=== PATIENT | female | born 1950 | race Caucasian/White ===

== ENCOUNTER 2017-09-13 09:19 | Outpatient (CLI) | payer MEDICARE | END 2017-09-13 09:20 | disposition home or self-care (01) | LOC: BICMAMMO 09:19 | PROVIDERS: ATTEND Family Medicine | DX: Z12.31 Encounter for screening mammogram for malignant neoplasm of breast (principal); M85.80 Other specified disorders of bone density and structure, unspecified site; R92.1 Mammographic calcification found on diagnostic imaging of breast | CPT/HCPCS: 77063; 77067; 77080 ==

== ENCOUNTER 2018-01-17 14:26 | Outpatient (CLI) | payer MEDICARE | END 2018-01-17 14:27 | disposition home or self-care (01) | LOC: BICRAD 14:26 | PROVIDERS: ATTEND Internal Medicine Rheumatology | DX: M70.61 Trochanteric bursitis, right hip (principal); M16.0 Bilateral primary osteoarthritis of hip | CPT/HCPCS: 72170 ==

== ENCOUNTER 2018-02-19 13:23 | Outpatient (CLI) | payer MEDICARE ==
--- NOTE | 2018-02-19 15:42 | RAD ---
FIVE VIEWS OF THE LUMBAR SPINE: Date: 02-19-18 Comparison: None. History: Chronic back pain radiating down the right leg. FINDINGS: Five views of the lumbar spine demonstrates five lumbar type vertebral bodies with intact pedicles on frontal imaging. At the L4-5 level there is anterolisthesis measuring 8 mm on neutral imaging, 7 mm on flexion, and 8 mm on extension. There is disc space narrowing at L3-4 and L5-S1 with degenerative endplate change an d anterior osteophyte formation. There is no acute fracture or evidence of dislocation. Multilevel lower lumbar spine facet hypertrophic changes are present. IMPRESSION: Multilevel degenerative change within the lumbar spine, most prominent at L3-4 and L5-S1. There is al so anterolisthesis of L4 on L5 measuring up to 8 mm. POS: [facility]
--- NOTE | 2018-02-19 16:25 | MRI ---
LUMBAR SPINE MRI WITHOUT CONTRAST: 02/19/2018 HISTORY: Chronic back pain radiating down the right leg. COMPARISON: None. TECHNIQUE: Multiplanar, multisequence MR imaging of the lumbar spine provided without contrast. FINDINGS: The sagittal STIR imaging demonstrates no focal area of osseous marrow edema. Assuming five lumbar t ype vertebral bodies, the conus medullaris terminates at the T12-L1 level. No significant anterolist hesis or retrolisthesis is noted. T12-L1: Intervertebral disk height and signal intensity are within normal limits. No significant ce ntral canal or neural foraminal stenosis. L1-L2: There is mild bilateral facet hypertrophy and hypertrophy of the ligamentum flavum. There is disk space narrowing and disk desiccation with mild disk bulge, causing no significant central canal or neural foraminal stenosis. L2-L3: There is disk space narrowing with degenerative endplate change and anterior osteophyte forma tion. There is bilateral facet hypertrophy and hypertrophy of the ligamentum flavum, with mild disk bulge. No significant central canal or neural foraminal stenosis. L3-L4: There is bilateral facet hypertrophy and hypertrophy of the ligamentum flavum, left greater t roe right. There is disk space narrowing, disk desiccation, and mild disk bulge. There is a small f oraminal and post foraminal disk protrusion on the left. There is mild left neural foraminal stenosi s/lateral recess stenosis. No significant right neural foraminal stenosis. L4-L5: There is moderate bilateral facet hypertrophy, right greater than left. There is disk space narrowing, disk desiccation, and disk bulge. There is no significant central canal stenosis. There is mild bilateral neural foraminal stenosis. L5-S1: Disk space narrowing, disk desiccation, and mild disk bulge. Bilateral facet hypertrophy. N o significant central canal or neural foraminal stenosis. The imaged retroperitoneal structures demonstrate no acute findings. IMPRESSION: Multilevel degenerative change with no significant central canal or neural foraminal stenosis noted. POS: [facility]
== END 2018-02-19 13:24 | disposition home or self-care (01) ==
LOC: SCSMRI 13:23
PROVIDERS: ATTEND Anesthesiology Pain Medicine
DX: M48.062 Spinal stenosis, lumbar region with neurogenic claudication (principal); M47.896 Other spondylosis, lumbar region; M47.897 Other spondylosis, lumbosacral region; M43.16 Spondylolisthesis, lumbar region
CPT/HCPCS: 72110; 72148

== ENCOUNTER 2018-04-23 14:16 | Outpatient (CLI) | payer MEDICARE | END 2018-04-23 14:17 | disposition home or self-care (01) | LOC: BICRAD 14:16 | PROVIDERS: ATTEND Internal Medicine Rheumatology | DX: M54.2 Cervicalgia (principal); M47.892 Other spondylosis, cervical region; M99.81 Other biomechanical lesions of cervical region | CPT/HCPCS: 72052 ==

== ENCOUNTER 2018-06-20 12:34 | Outpatient (CLI) | payer MEDICARE ==
--- NOTE | 2018-06-20 16:21 | MRI ---
MRI CERVICAL SPINE WITH AND WITHOUT CONTRAST: Technique: Multiplanar, multisequence MRI images were obtained of the cervical spine with and without contrast. Indication: Cervical radiculopathy. FINDINGS: Cervical vertebrae maintain normal height and alignment. Degenerative changes are noted throughout th e cervical spine with mild anterior osteophytes. There is loss of the disc space at C4-5, C5-6, and C 6-7 levels. C3-4: Posterior disc bulge with spondylosis efface the anterior subarachnoid space. No cord impingeme nt. No evidence of significant foraminal stenosis. C4-5: Posterior disc bulge with spondylosis abuts the anterior cord. Mild bilateral foraminal narrowi ng due to disc bulge and uncinate hypertrophy. C5-6: Mild disc bulge and spondylosis abuts the anterior cord. Right foraminal narrowing secondary to uncinate hypertrophy. C6-7: Minimal disc bulge and posterior spondylosis abutting the anterior cord. Mild right foraminal e ncroachment. C7-T1: Mild spondylosis effaces the anterior subarachnoid space. Mild bilateral foraminal encroachmen t due to uncinate hypertrophy. Cord signal appears normal. IMPRESSION: Degenerative disc changes throughout the cervical spine. Posterior disc bulge and spondylosis seen th rough C3 through C7 as described above. POS: [facility]
--- NOTE | 2018-06-20 16:43 | MRI ---
THORACIC SPINE MRI NONCONTRAST: 06/20/18 INDICATION: Back pain. No prior comparison. FINDINGS: Generalized marrow heterogeneity is present, nonspecific. This could relate to a degenerative process . There are multilevel mild disc bulges/disc osteophyte complexes with mild effacement of ventral the arthur sac although no high grade central canal stenosis or significant cord deformity. No severe forami nal stenosis is seen throughout the thoracic spine. There is a mild degree of chronic appearing heigh t loss of the superior end plate of T12. No localizable paraspinal soft tissue edema is evident. Incidental note of pulmonary nodules within the left lung which will require further imaging assessme nt as neoplastic process is the diagnosis of exclusion. IMPRESSION: Extensive multilevel disc osteophyte/disc bulge formation with mild effacement of ventral thecal sac, although no cord deformity of significance. Diffuse marrow heterogeneity as discussed above. Incidental note of pulmonary nodules seen within the left lung. Dedicated CT thorax is warranted to e xclude possibility of underlying neoplasm as findings are incompletely evaluated on the basis of this exam. Code T POS: [facility]
== END 2018-06-20 12:35 | disposition home or self-care (01) ==
LOC: SCSMRI 12:34
PROVIDERS: ATTEND Neurological Surgery
DX: M54.6 Pain in thoracic spine (principal); M51.84 Other intervertebral disc disorders, thoracic region; M25.78 Osteophyte, vertebrae; M47.22 Other spondylosis with radiculopathy, cervical region; M50.11 Cervical disc disorder with radiculopathy, high cervical region
CPT/HCPCS: 72146; 72156; 82565

== ENCOUNTER 2018-08-10 12:27 | Outpatient (CLI) | payer MEDICARE ==
--- NOTE | 2018-08-10 14:02 | MRI ---
MRI LEFT KNEE WITHOUT CONTRAST: HISTORY: Pain. Fall. COMPARISON: None. FINDINGS: MEDIAL MENISCUS: There is maceration throughout the medial meniscus with complete loss of hoop stres s and gutter extrusion. LATERAL MENISCUS: Intact. ACL and PCL are intact. MCL and LCLC are intact. EXTESOR MECHANISM: The quadriceps tendon, patella, and patella tendon are intact. CARTILAGE PATELLOFEMORAL COMPARTMENT: There is high-grade chondral fissuring, greater than 75% thickness, of t he patellar apex and medial trochlea. MEDIAL COMPARTMENT: There is complete cartilage loss of the central weightbearing surfaces of the me dial femoral condyle and medial tibial plateau with subcortical reactive marrow changes and osteophyt e formation. LATERAL COMPARTMENT: Grade 2 chondromalacia. BONES: Moderate osteophytes of the medial compartment. MUSCLES: Muscle signal and bulk is normal. SOFT TISSUES: There is a small, nonleaking popliteal cyst. Low grade pes anserine bursa effusion. IMPRESSION: 1. Maceration of the body and portions of the posterior horn of the medial meniscus with gutter extr usion and complete loss of hoop stress with subsequent grade 4 medial compartment chondromalacia. 2. Multifocal grade 2 and 3 chondromalacia of the patellofemoral compartment. POS: [facility]
== END 2018-08-10 12:28 | disposition home or self-care (01) ==
LOC: SCSMRI 12:27
PROVIDERS: ATTEND Internal Medicine Rheumatology
DX: M17.12 Unilateral primary osteoarthritis, left knee (principal); M22.42 Chondromalacia patellae, left knee

== ENCOUNTER 2018-09-27 09:39 | Outpatient (CLI) | payer MEDICARE ==
--- NOTE | 2018-09-27 11:24 | CT ---
CT THORAX NONCONTRAST: DATE: 09/27/18 HISTORY: 67-year-old female with pulmonary nodule incidentally found on thoracic spine MRI. COMPARISON: No prior chest CTs. FINDINGS: In the anterior segment of the left upper lobe, there is a smoothly, well circumscribed, noncalcified pulmonary nodule measuring approximately 0.9 x 1.2 x 1.1 cm. The density is -3 to -10 HU (with the c aveat that there may be mild partial volume averaging with adjacent lung tissue, the nodule is large enough that this measurement is probably accurate). This relatively low density suggests that perhaps this nodule has fatty elements. This corresponds to the nodule that was found on the thoracic spine MRI. The rest of the lungs are essentially clear. No pleural effusion, pneumothorax, consolidation, or pul monary edema. Tortuosity of mildly ectatic thoracic aorta without dissection or aneurysm. No mediasti nal or hilar lymphadenopathy. Trachea and bilateral mainstem bronchi are patent and clear. No destruc tive osseous lesion. No adrenal mass. No pathology of pancreas, liver, or spleen identified. IMPRESSION: 12 mm left upper lobe pulmonary nodule. 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 As a prec autionary measure, a PET scan is recommended to exclude the less likely possibility of malignant neop lasm. OLINDA Vaughan POS: [facility]
== END 2018-09-27 09:40 | disposition home or self-care (01) ==
LOC: BICCT 09:39
PROVIDERS: ATTEND Internal Medicine Critical Care Medicine
DX: R91.1 Solitary pulmonary nodule (principal)
CPT/HCPCS: 71260; 82565

== ENCOUNTER 2018-09-27 14:35 | Outpatient (CLI) | payer MEDICARE | END 2018-09-27 14:36 | disposition home or self-care (01) | LOC: BICMAMMO 14:35 | PROVIDERS: ATTEND Family Medicine | DX: Z12.31 Encounter for screening mammogram for malignant neoplasm of breast (principal); Z80.3 Family history of malignant neoplasm of breast | CPT/HCPCS: 77063; 77067 ==

== ENCOUNTER 2018-10-04 11:29 | Outpatient (CLI) | payer MEDICARE ==
--- NOTE | 2018-10-04 14:13 | PET ---
PET WITH CT SKULL TO MID THIGH: INDICATION: Solitary pulmonary nodule. RADIOPHARMACEUTICAL: 10.8 mCi [id number] intermixed with 10 mL 0.9% sodium chloride, IV. There is appropriate biodistribution of the radiotracer activity. FINDINGS: The previously described left upper lobe pulmonary nodule is redemonstrated. There is no hypermetabol ic activity. The nodule demonstrates a low CT density, indicating a pulmonary hamartoma given its wel l circumscribed morphology and low attenuation, with absence of hypermetabolic activity. No hypermetabolic mass or adenopathy identified within the neck, chest, abdomen, or pelvis. There is evidence of colonic diverticulosis. Scattered vascular disease present. Incidentally note of a torus palatinus. Retention cyst formation seen at the lateral aspect of the right maxillary sinus. IMPRESSION: There is no hypermetabolic activity localizing to circumscribed low density nodule of the left upper lobe, which is most consistent with a pulmonary hamartoma. POS: [facility]
== END 2018-10-04 11:30 | disposition home or self-care (01) ==
LOC: PET 11:29
PROVIDERS: ATTEND Internal Medicine Critical Care Medicine
DX: R91.1 Solitary pulmonary nodule (principal)
CPT/HCPCS: 78815; A9552

== ENCOUNTER 2019-04-09 09:37 | Outpatient (CLI) | payer MEDICARE ==
--- NOTE | 2019-04-09 13:07 | CT ---
CT CHEST WITHOUT CONTRAST: HISTORY: Lung nodule followup. COMPARISON: 09/27/2018. FINDINGS: The fat-containing 11 mm parenchymal lung nodule in the left upper lobe is stable and consistent with a hamartoma. No new lung nodules are seen. A tiny calcified granuloma in the right mid lung is see n. There are vascular calcifications without evidence of aneurysmal dilatation of the thoracic aorta. T here are degenerative changes in the spine. 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 POS: [facility]
== END 2019-04-09 09:38 | disposition home or self-care (01) ==
LOC: BICCT 09:37
PROVIDERS: ATTEND Internal Medicine Critical Care Medicine
DX: R91.1 Solitary pulmonary nodule (principal); Q85.9 Phakomatosis, unspecified
CPT/HCPCS: 71250

== ENCOUNTER 2019-08-16 12:10 | Outpatient (CLI) | payer MEDICARE ==
--- NOTE | 2019-08-16 13:06 | MMO ---
Bilateral MAMMO Bilat Diag [facility]. CLINICAL HISTORY: Patient is 68 years old and is seen for diagnostic exam. The patient has the following family history of breast cancer: maternal grandmother. The patient has no personal history of cancer. VIEWS: The views performed were: bilateral craniocaudal with tomosynthesis; bilateral mediolateral oblique with tomosynthesis; and bilateral mediolateral with tomosynthesis. FILMS COMPARED: The present examination has been compared to prior imaging studies performed at [facility] on 09/13/2017 and 09/27/2018, and at [facility] on 07/26/2013 and 09/05/2014. This study has been interpreted with the assistance of computer-aided detection. MAMMOGRAM FINDINGS: There are scattered fibroglandular densities. There are stable benign appearing calcifications seen in both breasts. There are no suspicious masses, suspicious calcifications, or new areas of architectural distortion. IMPRESSION: THERE IS NO MAMMOGRAPHIC EVIDENCE OF MALIGNANCY. A ROUTINE FOLLOW-UP MAMMOGRAM IN 1 YEAR IS RECOMMENDED. THE RESULTS OF THIS EXAM WERE SENT TO THE PATIENT. ACR BI-RADS Category 2 - Benign finding MAMMOGRAPHY NOTE: 1. A negative mammogram report should not delay a biopsy if a dominant of clinically suspicious mass is present. 2. Approximately 10% to 15% of breast cancers are not detected by mammography. 3. Adenosis and dense breasts may obscure an underlying neoplasm. Reported by: MINDA HUITRON MD Electonically Signed: [id number]
== END 2019-08-16 12:11 | disposition home or self-care (01) ==
LOC: BICMAMMO 12:10
PROVIDERS: ATTEND Family Medicine
DX: N61.0 Mastitis without abscess (principal); N64.59 Other signs and symptoms in breast
CPT/HCPCS: 77066; G0279

== ENCOUNTER 2020-04-07 11:51 | Outpatient (CLI) | payer MEDICARE ==
--- NOTE | 2020-04-07 14:03 | CT ---
CT THORAX WITHOUT IV CONTRAST: 04/07/20 INDICATIONS: Follow-up pulmonary nodule. COMPARISON: Prior exam dated 04/09/19 and 09/27/18. FINDINGS: The 10-11 mm pulmonary nodule left upper lobe is stable. No new pulmonary nodule is evident. There is a calcified granuloma again seen within the right middle lobe. There are coronary artery and thoraci c aortic calcifications. The visualized upper abdomen reveals no definite acute abnormality. There i s scattered degenerative and osteoarthritic change. IMPRESSION: Stable left upper lobe pulmonary nodule. POS: [facility]
== END 2020-04-07 11:52 | disposition home or self-care (01) ==
LOC: BICCT 11:51
PROVIDERS: ATTEND Internal Medicine Critical Care Medicine
DX: R91.1 Solitary pulmonary nodule (principal)
CPT/HCPCS: 71250

== ENCOUNTER 2020-08-18 15:00 | Outpatient (CLI) | payer MEDICARE ==
--- NOTE | 2020-08-18 15:37 | MMO ---
Bilateral MAMMO Bilat Screen [facility]. CLINICAL HISTORY: Patient is 69 years old and is seen for screening. The patient has the following family history of breast cancer: maternal grandmother. The patient has no personal history of cancer. VIEWS: The views performed were: bilateral craniocaudal with tomosynthesis and bilateral mediolateral oblique with tomosynthesis. FILMS COMPARED: The present examination has been compared to prior imaging studies performed at [facility] on 09/13/2017, 09/27/2018 and 08/16/2019, and at [facility] on 09/05/2014. This study has been interpreted with the assistance of computer-aided detection. MAMMOGRAM FINDINGS: There are scattered fibroglandular densities. There are stable benign appearing calcifications seen in both breasts. There are no suspicious masses, suspicious calcifications, or new areas of architectural distortion. IMPRESSION: THERE IS NO MAMMOGRAPHIC EVIDENCE OF MALIGNANCY. A ROUTINE FOLLOW-UP MAMMOGRAM IN 1 YEAR IS RECOMMENDED. THE RESULTS OF THIS EXAM WERE SENT TO THE PATIENT. ACR BI-RADS Category 2 - Benign finding MAMMOGRAPHY NOTE: 1. A negative mammogram report should not delay a biopsy if a dominant of clinically suspicious mass is present. 2. Approximately 10% to 15% of breast cancers are not detected by mammography. 3. Adenosis and dense breasts may obscure an underlying neoplasm. Reported by: MINDA HUITRON MD Electonically Signed: [id number]
== END 2020-08-18 15:01 | disposition home or self-care (01) ==
LOC: BICMAMMO 15:00
PROVIDERS: ATTEND Family Medicine
DX: Z12.31 Encounter for screening mammogram for malignant neoplasm of breast (principal); Z80.3 Family history of malignant neoplasm of breast
CPT/HCPCS: 77063; 77067

== ENCOUNTER 2021-04-13 09:21 | Outpatient (CLI) | payer MEDICARE | END 2021-04-13 09:22 | disposition home or self-care (01) | LOC: BICCT 09:21 | PROVIDERS: ATTEND Internal Medicine Critical Care Medicine | DX: R91.1 Solitary pulmonary nodule (principal) | CPT/HCPCS: 71250 ==

== ENCOUNTER 2021-08-25 14:14 | Outpatient (CLI) | payer MEDICARE | END 2021-08-25 14:15 | disposition home or self-care (01) | LOC: BICMAMMO 14:14 | PROVIDERS: ATTEND Family Medicine | DX: Z12.31 Encounter for screening mammogram for malignant neoplasm of breast (principal); Z13.820 Encounter for screening for osteoporosis; Z80.3 Family history of malignant neoplasm of breast; M85.89 Other specified disorders of bone density and structure, multiple sites | CPT/HCPCS: 77063; 77067; 77080 ==

== ENCOUNTER 2022-04-14 10:03 | Outpatient (CLI) | payer MEDICARE | END 2022-04-14 10:04 | disposition home or self-care (01) | LOC: BICCT 10:03 | PROVIDERS: ATTEND Internal Medicine Critical Care Medicine | DX: Q85.9 Phakomatosis, unspecified (principal) | CPT/HCPCS: 71250 ==

== ENCOUNTER 2022-11-28 13:24 | Outpatient (CLI) | payer MEDICARE | END 2022-11-28 13:25 | disposition home or self-care (01) | LOC: BICMAMMO 13:24 | PROVIDERS: ATTEND Family Medicine | DX: Z12.31 Encounter for screening mammogram for malignant neoplasm of breast (principal); Z80.3 Family history of malignant neoplasm of breast | CPT/HCPCS: 77063; 77067 ==

== ENCOUNTER 2023-02-16 17:30 | Outpatient (CLI) | payer MEDICARE | END 2023-02-16 17:31 | disposition home or self-care (01) | LOC: SLEEPLAB 17:30 | PROVIDERS: ATTEND Family Medicine | DX: G47.33 Obstructive sleep apnea (adult) (pediatric) (principal); R06.83 Snoring; I10 Essential (primary) hypertension; R53.83 Other fatigue | CPT/HCPCS: 95800 ==

== ENCOUNTER 2023-04-19 17:00 | Outpatient (CLI) | payer MEDICARE | END 2023-04-19 17:01 | disposition home or self-care (01) | LOC: SLEEPLAB 17:00 | PROVIDERS: ATTEND Family Medicine | DX: G47.33 Obstructive sleep apnea (adult) (pediatric) (principal); R06.83 Snoring; R53.83 Other fatigue | CPT/HCPCS: 95811 ==

== ENCOUNTER 2024-02-20 14:24 | Outpatient (CLI) | payer MEDICARE | END 2024-02-20 14:25 | disposition home or self-care (01) | LOC: BICMAMMO 14:24 | PROVIDERS: ATTEND Family Medicine | DX: Z12.31 Encounter for screening mammogram for malignant neoplasm of breast (principal); Z13.820 Encounter for screening for osteoporosis; M85.851 Other specified disorders of bone density and structure, right thigh; M85.852 Other specified disorders of bone density and structure, left thigh; Z80.3 Family history of malignant neoplasm of breast | CPT/HCPCS: 77063; 77067; 77080 ==

== ENCOUNTER 2025-03-19 15:03 | Outpatient (CLI) | payer MEDICARE | END 2025-03-19 15:04 | disposition home or self-care (01) | LOC: BICMAMMO 15:03 | PROVIDERS: ATTEND Obstetrics & Gynecology | DX: Z12.31 Encounter for screening mammogram for malignant neoplasm of breast (principal); Z80.3 Family history of malignant neoplasm of breast | CPT/HCPCS: 77063; 77067 ==